=== PATIENT | female | born 1970 | race Caucasian/White ===

== ENCOUNTER 2018-10-07 18:57 | Emergency (ER) | payer OTHER ==
[2018-10-07] MEDS: IBUPROFEN 600 MG TAB PO (20:13)
== END 2018-10-07 21:30 | disposition home or self-care (01) ==
LOC: FTE 18:57
DX: S90.121A Contusion of right lesser toe(s) without damage to nail, initial encounter (principal); F17.210 Nicotine dependence, cigarettes, uncomplicated; W22.8XXA Striking against or struck by other objects, initial encounter; Y92.9 Unspecified place or not applicable
CPT/HCPCS: 73630; 99283-25